=== PATIENT | female | born 1995 | race Caucasian/White ===

== ENCOUNTER 2018-05-23 10:08 | Outpatient (CLI) | payer MEDICAID, SELFPAY ==
[2018-05-23 10:40] LABS: Abs Immature Grans 0.02 k/cumm (0.0-0.09); Absolute Basophil Count 0.04 k/cumm (0.0-0.2); Absolute Eosinophil Count 0.08 k/cumm (0.0-0.7); Absolute Lymphocyte Count 1.58 k/cumm (1.2-3.4); Absolute Monocyte Count 0.42 k/cumm (0.11-0.7); Absolute Neutrophil Count 5.96 k/cumm (1.2-6.7); Basophils % 0.5; HCT 37.2 % (36.0-46.0); HGB 12.4 g/dL (12.0-15.5); Immature Grans % 0.2; Lymphocytes % 19.5; Mean Corp. HGB Concentration 33.3 g/dL (32.0-36.0); Mean Corpuscular Volume 80.9 fL (80-95); Mean Platelet Volume 9.2 fL (8.0-11.0); Monocytes % 5.2; Neutrophils % 73.6; Platelet Count 360 x1000/uL (130-400); RBC Distribution Width 13.4 % (11.7-14.6)
[2018-05-23 10:43] LABS: Glucose,1 Hr (Glucola) 87 mg/dL (80-140)
[2018-05-23 11:48] LABS: TSH (W/Ref FT4) 4.94 uIU/mL (0.358-3.74)
[2018-05-23 12:05] LABS: FREE T4 1.02 ng/dL (0.76-1.46)
[2018-05-23 13:21] LABS: *AMPHETAMINES SCREEN URINE Negative (Negative); *BARBITURATES SCREEN URINE Negative (Negative); *BENZODIAZEPINES SCREEN URINE Negative (Negative); Cannabinoids THC Negative (Negative); Cocaine Screen,Urine Negative (Negative); METHADONE URINE SCREEN Negative (Negative); OPIATES URINE SCREEN Negative (Negative)
[2018-05-23 13:22] LABS: Tricyclic Antidepressants Negative (Negative)
[2018-05-24 08:58] LABS: Hepatitis B Surface Ag Negative (NEGAT)
[2018-05-24 09:46] LABS: Hepatitis C Ab w Rflx HCV PCR Negative (NEGAT)
[2018-05-24 09:50] LABS: HIV-1/2 Ag & Ab Screen Negative (NEGAT)
[2018-05-24 13:03] LABS: Chlamydia Result Negative; GC Result Negative; Specimen Description CERVIX
[2018-05-24 13:04] LABS: Rubella IgG Ab (UVM) Positive; Syphilis Serology (RPR) Negative (Negative); Varicella IgG Antibody Negative
[2018-05-27 15:00] LABS: Buprenorphine Negative; Norbuprenorphine Negative
== END 2018-05-23 10:28 ==
PROVIDERS: Visit Provider Advanced Practice Midwife
DX: Z34.91 Encounter for supervision of normal pregnancy, unspecified, first trimester (principal); Z11.3 Encounter for screening for infections with a predominantly sexual mode of transmission; Z11.4 Encounter for screening for human immunodeficiency virus [HIV]; Z01.84 Encounter for antibody response examination; Z11.59 Encounter for screening for other viral diseases
CPT/HCPCS: 36415; 80055; 80307; 82950; 86787; 86803; 86850; 86900; 86901; 87340; 87389; 87491; 87591; 84439; 84443; 86592; 86762; 87086

== ENCOUNTER 2018-05-23 12:53 | Outpatient (REF) | payer MEDICAID, SELFPAY ==
--- NOTE | 2018-05-23 09:55 | PAPFT_PTH ---
PATIENT: Ramonita Peacock LOC: [facility] U#:[id number] AGE/SX: 22/F ROOM: RE05/23/[address]: Ford Benavidez RN : 1995 BED: DIS: 05/23/2018 SPEC #: [id number] RECD: 05/23/18 13:09 STATUS: TOMMY REThomas #: [id number] DELON: 05/23/18 09:[address]: Ford Benavidez DEPT: [facility] Cytology RECD BY: Stefani Casillas ENTERED: 05/23/18 13:09 SP TYPE: PAPFT OTHR DR: Sara Tissues: 1 - CX/ENDOCX FOR PAP SMEARS Procedures: PAP THIN PREP/[facility] Screening Comments: [id number]
== END 2018-05-23 13:13 ==
LOC: LBN 12:53
PROVIDERS: Visit Provider Advanced Practice Midwife
DX: Z12.4 Encounter for screening for malignant neoplasm of cervix (principal)
CPT/HCPCS: 88142

== ENCOUNTER 2018-07-15 17:34 | Outpatient (REF) | payer MEDICAID, SELFPAY | END 2018-07-15 17:54 | LOC: LBN 17:34 | PROVIDERS: Visit Provider Advanced Practice Midwife | DX: R69 Illness, unspecified (principal); R10.2 Pelvic and perineal pain | CPT/HCPCS: 87480; 87510; 87660 ==

== ENCOUNTER 2018-07-26 07:00 | Outpatient (CLI) | payer MEDICAID, SELFPAY ==
[2018-07-26 10:21] LABS: Kit/Specimen SENT
[2018-07-26 11:30] LABS: FREE T4 1.13 ng/dL (0.76-1.46); TSH 2.24 uIU/mL (0.358-3.74)
[2018-07-29 15:26] LABS: AFP 54.2 ng/mL; Cigarette smoking status non-smoker; GA used in risk estimate Dates estimate; IVF Pregnancy No; Initial or repeat testing Initial testing; Insulin dependent diabetes No; Maternal Weight 215 lbs; Number of Fetuses 1; Physician Phone Number 802-748-7300; Prev Pregnancy w/NTD No; RECOMMENDED FOLLOW UP None.; Results Summary Normal risk
[2018-08-05 01:16] LABS: Specimen WB Whole Blood
[2018-08-06 11:16] LABS: Result Summary NEGATIVE; Specimen WB Whole Blood
== END 2018-07-26 07:20 ==
PROVIDERS: Advanced Practice Midwife; Visit Provider Advanced Practice Midwife
DX: Z34.92 Encounter for supervision of normal pregnancy, unspecified, second trimester (principal); E03.9 Hypothyroidism, unspecified; Z36.89 Encounter for other specified antenatal screening
CPT/HCPCS: 36415; 81329; 81220; 82105; 84439; 84443

== ENCOUNTER 2018-08-12 01:12 | Outpatient (CLI) | payer MEDICAID, SELFPAY ==
--- NOTE | 2018-08-12 12:36 | DI.US_ITS ---
SYMPTOM/DIAGNOSIS: 18 WK ANATOMY SURVEY Z34.90 OB ULTRASOUND: The fetus is in cephalic position. The placenta is anterior. The biometric measurements correspond to 19 weeks 5 days and an EDC of 01 Jan 2019 The amniotic fluid appears normal. No abnormalities are identified. IMPRESSION: survey is within normal limits. Predicted Gestational Age: Indication/History: 19 +3 Wks Range: 18 +3 to 20 +3 Prior US done on: Determined by: First US LMP XX History EDC by prior US: 01/04/19 For multiple gestations: Baby PLACENTA: Grade: 0 - I Location: XX Anterior Posterior PRESENTATION: RT LT LOW LYING PREVIA Cephalic XX Trans (Head RT LT ) Varied Breech BIOMETRY: Anatomy Identified: BPD: 45 mm 19 +5 wks 4 chamber Heart XX Heart Rate 147 BPM HC: 171 mm 10 +5 wks LVOT XX Post Fossa XX AC: 145 mm 19 +6 wks RVOT XX Ventricles XX FL: 30 mm 19 +3 wks Stomach XX Nose XX Bladder XX Lips XX Cisterna Magna: 4.0 mm CI: 83 Kidneys XX Palate XX Cerebellum: 1.96 mm 3 vessel cord XX Spine XX EFW: 304 grms 58 % Cord Insertion XX NS= not seen Composite Age (US) 19 +5 wks Many abnormalities cannot be diagnosed. A normal exam does not exclude congenital abnormality. EDC by US 01/01/19 Amniotic Fluid Index: Normal COMMENTS: RUQ: LUQ: RLQ: LLQ: Total: cm Biophysical Profile: Score 0/2 SHEILA (>2cm) Respirations (>30 sec) Body flexion/extension Extremity flexion/extension TOTAL SCORE
== END 2018-08-12 01:32 ==
PROVIDERS: Visit Provider Advanced Practice Midwife
DX: Z34.92 Encounter for supervision of normal pregnancy, unspecified, second trimester (principal)
CPT/HCPCS: 76805

== ENCOUNTER 2018-09-22 19:05 | Outpatient (CLI) | payer MEDICAID, SELFPAY ==
[2018-09-22 19:24] LABS: Bilirubin Negative (Negative); Blood Moderate (Negative); Clarity Sl Cloudy (Clear); Glucose Negative (Negative); Ketones Negative (Negative); Leukocyte Esterase Negative (Negative); Nitrite Negative (Negative); Specific Gravity 1.015 (1.005-1.025); Urobilinogen 0.2 EU/dL (Up TO 0.2)
[2018-09-22 19:36] LABS: Bacteria Many HPF (Negative); Casts Negative LPF (Negative); Epithelial Cells Many HPF (Negative); Mucus Negative (Negative); Other Cells Few Transitional (Negative); RBC >50 (0-2)
[2018-09-22 19:37] LABS: C & S Indicated? No/Sq. Contamination; Crystals Few Calcium Oxalate HPF (Negative)
== END 2018-09-22 19:25 ==
PROVIDERS: Visit Provider Advanced Practice Midwife
DX: O60.02 Preterm labor without delivery, second trimester (principal); Z3A.25 25 weeks gestation of pregnancy
CPT/HCPCS: 59025; 81003; 81015; 87086

== ENCOUNTER 2018-10-15 09:14 | Outpatient (CLI) | payer MEDICAID, SELFPAY ==
[2018-10-15 10:00] LABS: HCT 30.9 % (36.0-46.0); HGB 10.1 g/dL (12.0-15.5); Mean Corp. HGB Concentration 32.7 g/dL (32.0-36.0); Mean Corpuscular Hemoglobin 27.7 pg (27.0-33.0); Mean Corpuscular Volume 84.7 fL (80-95); Mean Platelet Volume 9.2 fL (8.0-11.0); Platelet Count 333 x1000/uL (130-400); RBC 3.65 m/cumm (4.00-5.20); RBC Distribution Width 13.3 % (11.7-14.6); White Blood Cell Count 11.63 k/cumm (4.4-10.8)
[2018-10-15 10:10] LABS: Glucose,1 Hr (Glucola) 106 mg/dL (80-140)
[2018-10-15 11:08] LABS: TSH (W/Ref FT4) 2.58 uIU/mL (0.36-3.74)
== END 2018-10-15 09:34 ==
PROVIDERS: PCP Internal Medicine; Visit Provider Advanced Practice Midwife
DX: Z34.93 Encounter for supervision of normal pregnancy, unspecified, third trimester (principal)
CPT/HCPCS: 36415; 82950; 85027; 84443

== ENCOUNTER 2018-10-31 14:57 | Outpatient (CLI) | payer MEDICAID, SELFPAY ==
[2018-10-31 15:20] LABS: HCT 30.9 % (36.0-46.0); Mean Corp. HGB Concentration 32.4 g/dL (32.0-36.0); Mean Corpuscular Hemoglobin 27.4 pg (27.0-33.0); Mean Corpuscular Volume 84.7 fL (80-95); Mean Platelet Volume 9.2 fL (8.0-11.0); Platelet Count 321 x1000/uL (130-400); RBC 3.65 m/cumm (4.00-5.20); RBC Distribution Width 13.7 % (11.7-14.6); White Blood Cell Count 11.33 k/cumm (4.4-10.8)
[2018-10-31 16:22] LABS: ALT 18 U/L (14-59); AST 10 U/L (15-37); Albumin 2.8 g/dL (3.4-5.0); Alkaline Phosphatase 81 U/L (46-116); BUN 6 mg/dL (7-18); Bilirubin, Total 0.2 mg/dL (0.2-1.0); CREATININE 0.55 mg/dL (0.55-1.02); Calcium 8.6 mg/dL (8.5-10.1); Chloride 106 mmol/L (98-107); Glucose 97 mg/dL (70-100); Potassium 3.9 mmol/L (3.5-5.1); Sodium 140 mmol/L (136-145); Total Protein 6.1 g/dL (6.4-8.2); Uric Acid 3.6 mg/dL (2.6-6.0)
== END 2018-10-31 15:17 ==
PROVIDERS: PCP Internal Medicine; Visit Provider Advanced Practice Midwife
DX: Z34.90 Encounter for supervision of normal pregnancy, unspecified, unspecified trimester (principal); Z11.3 Encounter for screening for infections with a predominantly sexual mode of transmission
CPT/HCPCS: 36415; 80053; 85027; 82565; 84156; 84550; 87480; 87510; 87660

== ENCOUNTER 2018-11-07 15:23 | Outpatient (CLI) | payer MEDICAID, SELFPAY ==
[2018-11-07 15:47] LABS: HCT 30.9 % (36.0-46.0); HGB 10.1 g/dL (12.0-15.5); Mean Corp. HGB Concentration 32.7 g/dL (32.0-36.0); Mean Corpuscular Hemoglobin 27.5 pg (27.0-33.0); Mean Corpuscular Volume 84.2 fL (80-95); Mean Platelet Volume 9.1 fL (8.0-11.0); Platelet Count 349 x1000/uL (130-400); RBC 3.67 m/cumm (4.00-5.20); RBC Distribution Width 13.8 % (11.7-14.6); White Blood Cell Count 10.67 k/cumm (4.4-10.8)
[2018-11-07 15:56] LABS: PROTEIN 22.5 mg/dL
[2018-11-07 16:03] LABS: COMMENT (LAB VIEW ONLY) 116.71 mg/dL; Prot/Crea Ur Ratio 0.19
[2018-11-07 16:33] LABS: ALT 14 U/L (14-59); AST 10 U/L (15-37); Albumin 2.8 g/dL (3.4-5.0); Alkaline Phosphatase 87 U/L (46-116); Anion Gap 10.4 mmol/L (3-11); BUN 6 mg/dL (7-18); Bilirubin, Total 0.2 mg/dL (0.2-1.0); CO2 23.6 mmol/L (21.0-32.0); CREATININE 0.56 mg/dL (0.55-1.02); Chloride 106 mmol/L (98-107); Glucose 102 mg/dL (70-100); Potassium 3.8 mmol/L (3.5-5.1); Sodium 140 mmol/L (136-145); Uric Acid 3.7 mg/dL (2.6-6.0)
== END 2018-11-07 15:43 ==
PROVIDERS: PCP Internal Medicine; Visit Provider Advanced Practice Midwife
DX: O14.90 Unspecified pre-eclampsia, unspecified trimester (principal); Z34.90 Encounter for supervision of normal pregnancy, unspecified, unspecified trimester
CPT/HCPCS: 36415; 80053; 85027; 82565; 84156; 84550

== ENCOUNTER 2018-11-09 21:05 | Observation (INO) | payer MEDICAID, SELFPAY ==
[2018-11-09 21:48] LABS: PROTEIN 30.6 mg/dL
[2018-11-09 22:00] LABS: COMMENT (LAB VIEW ONLY) 182.61 mg/dL; Prot/Crea Ur Ratio 0.16
[2018-11-09] MEDS: Betamet Acet/Betamet Na Ph Inj. 30 MG/5 ML 12 MG IM (22:23)
[2018-11-09 22:37] LABS: HCT 29.9 % (36.0-46.0); HGB 9.8 g/dL (12.0-15.5); Mean Corp. HGB Concentration 32.8 g/dL (32.0-36.0); Mean Corpuscular Hemoglobin 27.9 pg (27.0-33.0); Mean Corpuscular Volume 85.2 fL (80-95); Mean Platelet Volume 9.5 fL (8.0-11.0); Platelet Count 308 x1000/uL (130-400); RBC 3.51 m/cumm (4.00-5.20); RBC Distribution Width 13.9 % (11.7-14.6); White Blood Cell Count 12.16 k/cumm (4.4-10.8)
[2018-11-09 22:50] LABS: Uric Acid 3.7 mg/dL (2.6-6.0)
[2018-11-09 22:52] LABS: ALT 15 U/L (14-59); AST 10 U/L (15-37); Albumin 2.7 g/dL (3.4-5.0); Alkaline Phosphatase 85 U/L (46-116); Anion Gap 9.7 mmol/L (3-11); BUN 7 mg/dL (7-18); Bilirubin, Total 0.3 mg/dL (0.2-1.0); CO2 25.3 mmol/L (21.0-32.0); CREATININE 0.55 mg/dL (0.55-1.02); Calcium 8.7 mg/dL (8.5-10.1); Chloride 105 mmol/L (98-107); Glucose 79 mg/dL (70-100); Potassium 3.4 mmol/L (3.5-5.1); Sodium 140 mmol/L (136-145); Total Protein 6.4 g/dL (6.4-8.2)
[2018-11-09] MEDS: Aspirin E.C. 81 MG TABEC PO (23:24)
[2018-11-10] MEDS: Budesonide/Formoterol 160/4.5 6 GM 60 PUFF INH IH ×2 (00:02→07:51)
[2018-11-10] MEDS: Sertraline 50 MG TAB PO (07:49)
[2018-11-10] MEDS: Cetirizine 10 MG TAB PO (07:49)
[2018-11-10] MEDS: Prenatal Multivitamin w/CA,FE TAB 1 TAB PO (07:49)
[2018-11-10] MEDS: Ferrous Sulfate 325 MG TAB PO (07:49)
[2018-11-10] MEDS: Levothyroxine 50 MCG TAB PO (07:50)
[2018-11-10] MEDS: Betamet Acet/Betamet Na Ph Inj. 30 MG/5 ML 12 MG IM (22:20)
[2018-11-11 09:30] LABS: Creatinine,Urine 80.03 mg/dL
[2018-11-11 09:32] LABS: PROTEIN 18.2 mg/dL (0.0-11.9)
[2018-11-11 09:34] LABS: Creatinine,24hr Ur 1.52 g/24hr (0.60-1.80); TOTAL PROTEIN,URINE TIMED 350.4 mg/24hr (0.0-149.1); Total Volume 1925 ml
== END 2018-11-10 22:26 | disposition home or self-care (01) ==
PROVIDERS: Admitting Provider Advanced Practice Midwife; PCP Internal Medicine; Visit Provider Advanced Practice Midwife
DX: O26.893 Other specified pregnancy related conditions, third trimester (principal); Z3A.32 32 weeks gestation of pregnancy; O99.013 Anemia complicating pregnancy, third trimester; O99.283 Endocrine, nutritional and metabolic diseases complicating pregnancy, third trimester; O99.343 Other mental disorders complicating pregnancy, third trimester; O99.213 Obesity complicating pregnancy, third trimester; E03.9 Hypothyroidism, unspecified; D64.9 Anemia, unspecified; E66.9 Obesity, unspecified
CPT/HCPCS: 80053; 85027; 96372; 59025; 81050; 82565; 82570; 84155; 84156; 84550; G0378; J0702

== ENCOUNTER 2018-11-14 01:06 | Outpatient (CLI) | payer MEDICAID, SELFPAY ==
--- NOTE | 2018-11-14 08:31 | DI.US_ITS ---
EXAM: US OB BIOPHYSICAL PROFILE CLINICAL HISTORY: gestational HTN, O13.9. TECHNIQUE: Ultrasound performed using standard protocol. COMPARISON: US OB 2-3 trimester from 08/12/2018 FINDINGS: The limited examination reveals a normal biophysical profile. The amniotic fluid index is normal. Th e placenta is anterior. The fetus is in a cephalic position.
== END 2018-11-14 01:26 ==
PROVIDERS: PCP Internal Medicine; Visit Provider Advanced Practice Midwife
DX: O13.9 Gestational [pregnancy-induced] hypertension without significant proteinuria, unspecified trimester (principal); Z36.89 Encounter for other specified antenatal screening
CPT/HCPCS: 76815; 76819

== ENCOUNTER 2018-11-14 10:18 | Outpatient (CLI) | payer MEDICAID, SELFPAY | END 2018-11-14 10:38 | PROVIDERS: PCP Internal Medicine; Visit Provider Advanced Practice Midwife | DX: O13.3 Gestational [pregnancy-induced] hypertension without significant proteinuria, third trimester (principal); Z3A.32 32 weeks gestation of pregnancy | CPT/HCPCS: 59025 ==

== ENCOUNTER 2018-11-15 11:54 | Outpatient (CLI) | payer MEDICAID, SELFPAY | END 2018-11-15 12:14 | PROVIDERS: PCP Internal Medicine; Visit Provider Advanced Practice Midwife | DX: O13.3 Gestational [pregnancy-induced] hypertension without significant proteinuria, third trimester (principal); Z3A.33 33 weeks gestation of pregnancy | CPT/HCPCS: 59025 ==

== ENCOUNTER 2018-11-18 00:35 | Outpatient (CLI) | payer MEDICAID, SELFPAY ==
--- NOTE | 2018-11-18 08:32 | DI.US_ITS ---
EXAM: US OB SHEILA WEIGHT CLINICAL HISTORY: Size greater than dates Z34.90 SUPERVISION NORMAL . TECHNIQUE: Ultrasound performed using standard protocol. COMPARISON: US OB BIOPHYSICAL PROFILE from 11/14/2018 FINDINGS: Please see the ultrasound worksheet for the complete results of this examination.
[2018-11-18 09:23] LABS: HCT 29.8 % (36.0-46.0); HGB 9.8 g/dL (12.0-15.5); Mean Corp. HGB Concentration 32.9 g/dL (32.0-36.0); Mean Corpuscular Hemoglobin 27.8 pg (27.0-33.0); Mean Corpuscular Volume 84.4 fL (80-95); Mean Platelet Volume 8.6 fL (8.0-11.0); Platelet Count 338 x1000/uL (130-400); RBC 3.53 m/cumm (4.00-5.20); RBC Distribution Width 14.2 % (11.7-14.6)
[2018-11-18 10:32] LABS: ALT 12 U/L (14-59); AST 9 U/L (15-37); Albumin 2.7 g/dL (3.4-5.0); Alkaline Phosphatase 94 U/L (46-116); Anion Gap 12.5 mmol/L (3-11); BUN 7 mg/dL (7-18); Bilirubin, Total 0.4 mg/dL (0.2-1.0); CO2 21.5 mmol/L (21.0-32.0); CREATININE 0.56 mg/dL (0.55-1.02); Calcium 8.9 mg/dL (8.5-10.1); Chloride 106 mmol/L (98-107); Glucose 83 mg/dL (70-100); Potassium 3.6 mmol/L (3.5-5.1); Sodium 140 mmol/L (136-145); Uric Acid 3.9 mg/dL (2.6-6.0)
== END 2018-11-18 00:55 ==
PROVIDERS: PCP Internal Medicine; Visit Provider Advanced Practice Midwife
DX: O26.843 Uterine size-date discrepancy, third trimester (principal); O13.3 Gestational [pregnancy-induced] hypertension without significant proteinuria, third trimester; Z3A.33 33 weeks gestation of pregnancy
CPT/HCPCS: 36415; 76816; 80053; 85027; 81050; 84155; 84550

== ENCOUNTER 2018-11-18 07:47 | Outpatient (CLI) | payer MEDICAID, SELFPAY | END 2018-11-18 08:07 | PROVIDERS: PCP Internal Medicine; Visit Provider Advanced Practice Midwife | DX: O13.3 Gestational [pregnancy-induced] hypertension without significant proteinuria, third trimester (principal); R51 Headache; Z3A.33 33 weeks gestation of pregnancy | CPT/HCPCS: 59025 ==

== ENCOUNTER 2018-11-21 13:56 | Outpatient (CLI) | payer MEDICAID, SELFPAY | END 2018-11-21 14:16 | PROVIDERS: PCP Internal Medicine; Visit Provider Advanced Practice Midwife | DX: O13.3 Gestational [pregnancy-induced] hypertension without significant proteinuria, third trimester (principal); Z3A.33 33 weeks gestation of pregnancy | CPT/HCPCS: 59025 ==

== ENCOUNTER 2018-11-25 08:37 | Outpatient (CLI) | payer MEDICAID, SELFPAY | END 2018-11-25 08:57 | PROVIDERS: PCP Internal Medicine; Visit Provider Advanced Practice Midwife | DX: O13.3 Gestational [pregnancy-induced] hypertension without significant proteinuria, third trimester (principal); Z3A.34 34 weeks gestation of pregnancy | CPT/HCPCS: 59025 ==

== ENCOUNTER 2018-11-25 13:30 | Outpatient (CLI) | payer MEDICAID, SELFPAY ==
[2018-11-25 14:37] LABS: HGB 9.9 g/dL (12.0-15.5); Mean Corpuscular Hemoglobin 27.7 pg (27.0-33.0); Mean Platelet Volume 9.1 fL (8.0-11.0); Platelet Count 327 x1000/uL (130-400); RBC 3.57 m/cumm (4.00-5.20); RBC Distribution Width 14.1 % (11.7-14.6); White Blood Cell Count 9.71 k/cumm (4.4-10.8)
[2018-11-25 15:06] LABS: COMMENT (LAB VIEW ONLY) 118.79 mg/dL; PROTEIN 20.6 mg/dL; Prot/Crea Ur Ratio 0.17
[2018-11-25 15:21] LABS: ALT 12 U/L (14-59); AST 8 U/L (15-37); Albumin 2.6 g/dL (3.4-5.0); Alkaline Phosphatase 103 U/L (46-116); Anion Gap 10.4 mmol/L (3-11); BUN 6 mg/dL (7-18); Bilirubin, Total 0.3 mg/dL (0.2-1.0); CO2 23.6 mmol/L (21.0-32.0); CREATININE 0.55 mg/dL (0.55-1.02); Calcium 8.9 mg/dL (8.5-10.1); Chloride 106 mmol/L (98-107); FREE T4 0.94 ng/dL (0.76-1.46); Glucose 120 mg/dL (70-100); Potassium 3.6 mmol/L (3.5-5.1); Sodium 140 mmol/L (136-145); TSH 1.69 uIU/mL (0.36-3.74); Total Protein 5.9 g/dL (6.4-8.2); Uric Acid 4.1 mg/dL (2.6-6.0)
== END 2018-11-25 13:50 ==
PROVIDERS: PCP Internal Medicine; Visit Provider Advanced Practice Midwife
DX: O14.93 Unspecified pre-eclampsia, third trimester; O13.3 Gestational [pregnancy-induced] hypertension without significant proteinuria, third trimester
CPT/HCPCS: 36415; 80053; 85027; 82565; 84155; 84156; 84439; 84443; 84550

== ENCOUNTER 2018-11-25 14:51 | Outpatient (REF) | payer MEDICAID, SELFPAY ==
[2018-11-25 17:04] LABS: PROTEIN 24.1 mg/dL (0.0-11.9)
[2018-11-25 17:08] LABS: TOTAL PROTEIN,URINE TIMED 301.3 mg/24hr (0.0-149.1); Total Volume 1250 ml
== END 2018-11-25 15:11 ==
LOC: LBN 14:51
PROVIDERS: PCP Internal Medicine; Visit Provider Advanced Practice Midwife
DX: O13.3 Gestational [pregnancy-induced] hypertension without significant proteinuria, third trimester (principal)
CPT/HCPCS: 81050; 84155

== ENCOUNTER 2018-11-28 11:43 | Outpatient (CLI) | payer MEDICAID, SELFPAY | END 2018-11-28 12:03 | PROVIDERS: PCP Internal Medicine; Visit Provider Advanced Practice Midwife | DX: O13.3 Gestational [pregnancy-induced] hypertension without significant proteinuria, third trimester (principal); Z3A.34 34 weeks gestation of pregnancy | CPT/HCPCS: 59025 ==

== ENCOUNTER 2018-12-02 07:49 | Outpatient (CLI) | payer MEDICAID, SELFPAY | END 2018-12-02 08:09 | PROVIDERS: PCP Internal Medicine; Visit Provider Advanced Practice Midwife | DX: O26.893 Other specified pregnancy related conditions, third trimester (principal); R03.0 Elevated blood-pressure reading, without diagnosis of hypertension; Z3A.35 35 weeks gestation of pregnancy | CPT/HCPCS: 59025 ==

== ENCOUNTER 2018-12-02 12:37 | Outpatient (CLI) | payer MEDICAID, SELFPAY ==
[2018-12-02 13:05] LABS: HCT 31.8 % (36.0-46.0); HGB 10.6 g/dL (12.0-15.5); Mean Corp. HGB Concentration 33.3 g/dL (32.0-36.0); Mean Corpuscular Hemoglobin 27.7 pg (27.0-33.0); Mean Corpuscular Volume 83.2 fL (80-95); Mean Platelet Volume 8.8 fL (8.0-11.0); Platelet Count 314 x1000/uL (130-400); RBC 3.82 m/cumm (4.00-5.20); RBC Distribution Width 14.1 % (11.7-14.6); Reticulocyte 3.2 % (0.5-2.4); White Blood Cell Count 9.48 k/cumm (4.4-10.8)
[2018-12-02 14:25] LABS: ALT 12 U/L (14-59); AST 10 U/L (15-37); Albumin 2.8 g/dL (3.4-5.0); Alkaline Phosphatase 118 U/L (46-116); Anion Gap 11.8 mmol/L (3-11); BUN 7 mg/dL (7-18); Bilirubin, Total 0.3 mg/dL (0.2-1.0); CO2 22.2 mmol/L (21.0-32.0); CREATININE 0.61 mg/dL (0.55-1.02); Calcium 9.2 mg/dL (8.5-10.1); Chloride 104 mmol/L (98-107); Ferritin 36 ng/mL (8-388); Glucose 107 mg/dL (70-100); Potassium 3.7 mmol/L (3.5-5.1); Sodium 138 mmol/L (136-145); Total Protein 6.2 g/dL (6.4-8.2)
[2018-12-02 14:34] LABS: Uric Acid 3.9 mg/dL (2.6-6.0)
[2018-12-02 16:25] LABS: Iron 76 ug/dL (50-175); Total Iron Binding Capacity 519 ug/dL (250-450)
== END 2018-12-02 12:57 ==
PROVIDERS: PCP Internal Medicine; Visit Provider Advanced Practice Midwife
DX: O99.013 Anemia complicating pregnancy, third trimester (principal); O14.93 Unspecified pre-eclampsia, third trimester
CPT/HCPCS: 36415; 80053; 85027; 82728; 83540; 83550; 84550; 85045

== ENCOUNTER 2018-12-02 14:15 | Outpatient (REF) | payer MEDICAID, SELFPAY ==
[2018-12-02 17:58] LABS: Total Volume 2500 ml
== END 2018-12-02 14:35 ==
LOC: LBN 14:15
PROVIDERS: PCP Internal Medicine; Visit Provider Advanced Practice Midwife
DX: O13.3 Gestational [pregnancy-induced] hypertension without significant proteinuria, third trimester (principal)
CPT/HCPCS: 81050; 84155

== ENCOUNTER 2018-12-05 14:19 | Outpatient (CLI) | payer MEDICAID, SELFPAY | END 2018-12-05 14:39 | PROVIDERS: PCP Internal Medicine; Visit Provider Advanced Practice Midwife | DX: O13.3 Gestational [pregnancy-induced] hypertension without significant proteinuria, third trimester (principal); Z3A.35 35 weeks gestation of pregnancy | CPT/HCPCS: 59025 ==

== ENCOUNTER 2018-12-05 15:58 | Outpatient (REF) | payer MEDICAID, SELFPAY ==
[2018-12-05 17:20] LABS: *AMPHETAMINES SCREEN URINE Negative (Negative); *BARBITURATES SCREEN URINE Negative (Negative); *BENZODIAZEPINES SCREEN URINE Negative (Negative); Cannabinoids THC Negative (Negative); Cocaine Screen,Urine Negative (Negative); METHADONE URINE SCREEN Negative (Negative); OPIATES URINE SCREEN Negative (Negative)
[2018-12-05 17:33] LABS: Tricyclic Antidepressants Negative (Negative)
[2018-12-11 12:08] LABS: Buprenorphine Negative; Norbuprenorphine Negative
== END 2018-12-05 16:18 ==
LOC: LBN 15:58
PROVIDERS: PCP Internal Medicine; Visit Provider Advanced Practice Midwife
DX: Z34.93 Encounter for supervision of normal pregnancy, unspecified, third trimester (principal); Z36.85 Encounter for antenatal screening for Streptococcus B
CPT/HCPCS: 80307; 87081

== ENCOUNTER 2018-12-09 09:13 | Outpatient (CLI) | payer MEDICAID, SELFPAY | END 2018-12-09 09:33 | PROVIDERS: PCP Internal Medicine; Visit Provider Advanced Practice Midwife | DX: O13.3 Gestational [pregnancy-induced] hypertension without significant proteinuria, third trimester (principal); Z3A.36 36 weeks gestation of pregnancy | CPT/HCPCS: 59025 ==

== ENCOUNTER 2018-12-09 12:28 | Outpatient (CLI) | payer MEDICAID, SELFPAY ==
[2018-12-09 12:52] LABS: HGB 10.3 g/dL (12.0-15.5); Mean Corp. HGB Concentration 33.2 g/dL (32.0-36.0); Mean Corpuscular Hemoglobin 27.7 pg (27.0-33.0); Mean Corpuscular Volume 83.3 fL (80-95); Mean Platelet Volume 8.9 fL (8.0-11.0); Platelet Count 339 x1000/uL (130-400); RBC 3.72 m/cumm (4.00-5.20); RBC Distribution Width 14.1 % (11.7-14.6)
[2018-12-09 13:52] LABS: ALT 10 U/L (14-59); AST 9 U/L (15-37); Albumin 2.6 g/dL (3.4-5.0); Alkaline Phosphatase 109 U/L (46-116); Anion Gap 13.6 mmol/L (3-11); BUN 6 mg/dL (7-18); Bilirubin, Total 0.3 mg/dL (0.2-1.0); CO2 21.4 mmol/L (21.0-32.0); CREATININE 0.71 mg/dL (0.55-1.02); Calcium 8.8 mg/dL (8.5-10.1); Chloride 105 mmol/L (98-107); Glucose 144 mg/dL (70-100); Potassium 3.6 mmol/L (3.5-5.1); Sodium 140 mmol/L (136-145); Total Protein 5.9 g/dL (6.4-8.2); Uric Acid 4.3 mg/dL (2.6-6.0)
== END 2018-12-09 12:48 ==
PROVIDERS: PCP Internal Medicine; Visit Provider Advanced Practice Midwife
DX: O14.93 Unspecified pre-eclampsia, third trimester (principal)
CPT/HCPCS: 36415; 80053; 85027; 84550

== ENCOUNTER 2018-12-09 16:12 | Outpatient (REF) | payer MEDICAID, SELFPAY ==
[2018-12-09 16:51] LABS: PROTEIN 18.2 mg/dL (0.0-11.9); TOTAL PROTEIN,URINE TIMED 327.6 mg/24hr (0.0-149.1); Total Volume 1800 ml
== END 2018-12-09 16:32 ==
LOC: LBN 16:12
PROVIDERS: PCP Internal Medicine; Visit Provider Advanced Practice Midwife
DX: O13.9 Gestational [pregnancy-induced] hypertension without significant proteinuria, unspecified trimester (principal)
CPT/HCPCS: 81050; 84155

== ENCOUNTER 2018-12-12 00:13 | Outpatient (CLI) | payer MEDICAID, SELFPAY ==
--- NOTE | 2018-12-12 13:33 | DI.US_ITS ---
EXAM: US OB SHEILA AND WEIGHT CLINICAL HISTORY: gestational hypertension Z34.90 SUPERVISION NORMAL TECHNIQUE: Ultrasound performed using standard protocol. COMPARISON: US OB SHEILA AND WEIGHT from 11/18/2018 FINDINGS: The fetus is in cephalic position plate. The placenta is grade 1-2 and anterior. The biometric schuyler surements correspond to 36 weeks 2 days. The amnionic fluid index measures 20.8. cardiac acti vity is demonstrated at 140 beats per minute. The estimated weight is 2817 grams corresponding to the 32nd percentile.
== END 2018-12-12 00:33 ==
PROVIDERS: PCP Internal Medicine; Visit Provider Advanced Practice Midwife
DX: O13.3 Gestational [pregnancy-induced] hypertension without significant proteinuria, third trimester (principal)
CPT/HCPCS: 76816

== ENCOUNTER 2018-12-12 07:36 | Outpatient (CLI) | payer MEDICAID, SELFPAY | END 2018-12-12 07:56 | PROVIDERS: PCP Internal Medicine; Visit Provider Advanced Practice Midwife | DX: O13.3 Gestational [pregnancy-induced] hypertension without significant proteinuria, third trimester (principal); Z3A.36 36 weeks gestation of pregnancy | CPT/HCPCS: 59025 ==

== ENCOUNTER 2018-12-16 12:32 | Outpatient (REF) | payer MEDICAID, SELFPAY ==
[2018-12-16 15:14] LABS: PROTEIN 19.5 mg/dL (0.0-11.9)
[2018-12-16 15:22] LABS: TOTAL PROTEIN,URINE TIMED 386.1 mg/24hr (0.0-149.1); Total Volume 1980 ml
== END 2018-12-16 12:52 ==
LOC: LBN 12:32
PROVIDERS: PCP Internal Medicine; Visit Provider Advanced Practice Midwife
DX: O13.3 Gestational [pregnancy-induced] hypertension without significant proteinuria, third trimester (principal)
CPT/HCPCS: 81050; 84155

== ENCOUNTER 2018-12-16 14:30 | Outpatient (CLI) | payer MEDICAID, SELFPAY | END 2018-12-16 14:50 | PROVIDERS: PCP Internal Medicine; Visit Provider Advanced Practice Midwife | DX: O13.3 Gestational [pregnancy-induced] hypertension without significant proteinuria, third trimester (principal); Z3A.37 37 weeks gestation of pregnancy | CPT/HCPCS: 59025 ==

== ENCOUNTER 2018-12-19 14:03 | Outpatient (CLI) | payer MEDICAID, SELFPAY | END 2018-12-19 14:23 | PROVIDERS: PCP Internal Medicine; Visit Provider Advanced Practice Midwife | DX: O13.3 Gestational [pregnancy-induced] hypertension without significant proteinuria, third trimester (principal); Z3A.37 37 weeks gestation of pregnancy | CPT/HCPCS: 59025 ==

== ENCOUNTER 2018-12-19 16:40 | Outpatient (REF) | payer MEDICAID, SELFPAY ==
[2018-12-19 20:06] LABS: TOTAL PROTEIN,URINE TIMED 418.5 mg/24hr (0.0-149.1); Total Volume 2325 ml
== END 2018-12-19 17:00 ==
LOC: LBN 16:40
PROVIDERS: PCP Internal Medicine; Visit Provider Advanced Practice Midwife
DX: O13.3 Gestational [pregnancy-induced] hypertension without significant proteinuria, third trimester (principal)
CPT/HCPCS: 81050; 84155

== ENCOUNTER 2018-12-23 12:29 | Outpatient (CLI) | payer MEDICAID, SELFPAY ==
[2018-12-23 13:12] LABS: HGB 10.2 g/dL (12.0-15.5); Mean Corp. HGB Concentration 32.9 g/dL (32.0-36.0); Mean Corpuscular Hemoglobin 27.4 pg (27.0-33.0); Mean Corpuscular Volume 83.3 fL (80-95); Platelet Count 324 x1000/uL (130-400); RBC 3.72 m/cumm (4.00-5.20); RBC Distribution Width 14.3 % (11.7-14.6); White Blood Cell Count 10.97 k/cumm (4.4-10.8)
[2018-12-23 14:07] LABS: ALT 13 U/L (14-59); AST 9 U/L (15-37); Albumin 2.5 g/dL (3.4-5.0); Alkaline Phosphatase 123 U/L (46-116); Anion Gap 10.9 mmol/L (3-11); BUN 7 mg/dL (7-18); Bilirubin, Total 0.2 mg/dL (0.2-1.0); CO2 24.1 mmol/L (21.0-32.0); CREATININE 0.68 mg/dL (0.55-1.02); Calcium 9.2 mg/dL (8.5-10.1); Chloride 105 mmol/L (98-107); Glucose 103 mg/dL (70-100); Potassium 3.6 mmol/L (3.5-5.1); Sodium 140 mmol/L (136-145); Total Protein 5.9 g/dL (6.4-8.2); Uric Acid 4.9 mg/dL (2.6-6.0)
== END 2018-12-23 12:49 ==
PROVIDERS: Advanced Practice Midwife; PCP Internal Medicine; Visit Provider Advanced Practice Midwife
DX: O14.93 Unspecified pre-eclampsia, third trimester (principal)
CPT/HCPCS: 36415; 80053; 85027; 84550

== ENCOUNTER 2018-12-23 12:45 | Outpatient (REF) | payer MEDICAID, SELFPAY ==
[2018-12-23 15:37] LABS: TOTAL PROTEIN,URINE TIMED 356.3 mg/24hr (0.0-149.1); Total Volume 1875 ml
== END 2018-12-23 13:05 ==
LOC: LBN 12:45
PROVIDERS: PCP Internal Medicine; Visit Provider Advanced Practice Midwife
DX: O13.9 Gestational [pregnancy-induced] hypertension without significant proteinuria, unspecified trimester (principal)
CPT/HCPCS: 81050; 84155

== ENCOUNTER 2018-12-23 13:00 | Outpatient (RCR) | payer MEDICAID, SELFPAY ==
[2018-12-02] MEDS: IRON SUCROSE COMPLEX 200 MG in Normal Saline 100 ML 110 MG IVPB (13:41)
[2018-12-02] MEDS: Normal Saline Flush 10 ML SYR IVP (13:41)
[2018-12-09] MEDS: Normal Saline Flush 10 ML SYR IVP (13:20)
[2018-12-09] MEDS: IRON SUCROSE COMPLEX 200 MG in Normal Saline 100 ML 110 MG IVPB (13:20)
[2018-12-16 13:09] LABS: HCT 30.1 % (36.0-46.0); Mean Corp. HGB Concentration 33.2 g/dL (32.0-36.0); Mean Corpuscular Hemoglobin 27.8 pg (27.0-33.0); Mean Corpuscular Volume 83.6 fL (80-95); Mean Platelet Volume 9.1 fL (8.0-11.0); Platelet Count 309 x1000/uL (130-400); RBC Distribution Width 14.2 % (11.7-14.6); White Blood Cell Count 9.08 k/cumm (4.4-10.8)
[2018-12-16 13:11] LABS: ALT 13 U/L (14-59); AST 12 U/L (15-37); Albumin 2.4 g/dL (3.4-5.0); Alkaline Phosphatase 119 U/L (46-116); Anion Gap 13.4 mmol/L (3-11); BUN 6 mg/dL (7-18); Bilirubin, Total 0.3 mg/dL (0.2-1.0); CO2 23.6 mmol/L (21.0-32.0); CREATININE 0.58 mg/dL (0.55-1.02); Calcium 9.2 mg/dL (8.5-10.1); Chloride 104 mmol/L (98-107); Glucose 114 mg/dL (70-100); Potassium 3.7 mmol/L (3.5-5.1); Sodium 141 mmol/L (136-145); Total Protein 6.3 g/dL (6.4-8.2); Uric Acid 4.6 mg/dL (2.6-6.0)
[2018-12-16] MEDS: IRON SUCROSE COMPLEX 200 MG in Normal Saline 100 ML 110 MG IVPB (13:22)
[2018-12-16] MEDS: Normal Saline Flush 10 ML SYR IVP (13:22)
[2018-12-23] MEDS: IRON SUCROSE COMPLEX 200 MG in Normal Saline 100 ML 110 MG IVPB (13:30)
[2018-12-23] MEDS: Normal Saline Flush 10 ML SYR IVP (13:33)
== END 2018-12-26 23:59 | disposition home or self-care (01) ==
LOC: INF 13:00
PROVIDERS: PCP Internal Medicine; Visit Provider Advanced Practice Midwife
DX: O99.013 Anemia complicating pregnancy, third trimester (principal)
CPT/HCPCS: 36415; 80053; 85027; 96365; 84550; J1756

== ENCOUNTER 2018-12-23 14:32 | Outpatient (CLI) | payer MEDICAID, SELFPAY | END 2018-12-23 14:52 | PROVIDERS: PCP Internal Medicine; Visit Provider Advanced Practice Midwife | DX: O13.3 Gestational [pregnancy-induced] hypertension without significant proteinuria, third trimester (principal); Z3A.38 38 weeks gestation of pregnancy | CPT/HCPCS: 59025 ==

== ENCOUNTER 2018-12-26 10:07 | Inpatient (IN) | payer MEDICAID, SELFPAY ==
[2018-12-26] MEDS: miSOPROStol 50 MCG TAB PO (17:09)
[2018-12-26 17:36] LABS: HCT 31.7 % (36.0-46.0); HGB 10.6 g/dL (12.0-15.5); Mean Corp. HGB Concentration 33.4 g/dL (32.0-36.0); Mean Corpuscular Hemoglobin 27.8 pg (27.0-33.0); Mean Corpuscular Volume 83.2 fL (80-95); Mean Platelet Volume 9.2 fL (8.0-11.0); Platelet Count 321 x1000/uL (130-400); RBC 3.81 m/cumm (4.00-5.20); RBC Distribution Width 14.7 % (11.7-14.6); White Blood Cell Count 11.47 k/cumm (4.4-10.8)
[2018-12-26 17:46] LABS: ALT 13 U/L (14-59); AST 22 U/L (15-37); Albumin 2.6 g/dL (3.4-5.0); Alkaline Phosphatase 125 U/L (46-116); Bilirubin, Total 0.3 mg/dL (0.2-1.0); Total Protein 6.5 g/dL (6.4-8.2)
[2018-12-26 18:16] LABS: Bilirubin, Direct < 0.05 mg/dL (0.00-0.20)
[2018-12-26] MEDS: Penicillin G POT. 5,000,000 UNITS in Normal Saline 100 ML 200 UNITS IVPB (18:37)
[2018-12-26] MEDS: Lactated Ringers 1,000 ML 200 ML IV (18:39)
[2018-12-26] MEDS: miSOPROStol 25 MCG TAB PO (21:04)
[2018-12-26] MEDS: Zolpidem 5 MG TAB 10 MG PO (21:04)
[2018-12-26] MEDS: Penicillin G POT. 3,000,000 UNITS in Normal Saline 50 ML 100 UNITS IVPB (22:10)
[2018-12-27] MEDS: miSOPROStol 25 MCG TAB PO (01:02)
[2018-12-27] MEDS: Penicillin G POT. 3,000,000 UNITS in Normal Saline 50 ML 100 UNITS IVPB ×2 (02:05→06:11)
[2018-12-27] MEDS: Levothyroxine 50 MCG TAB PO (06:10)
[2018-12-27] MEDS: Lactated Ringers 1,000 ML 125 ML IV (07:06)
[2018-12-27] MEDS: Zolpidem 5 MG TAB 10 MG PO (20:35)
[2018-12-28] MEDS: Levothyroxine 50 MCG TAB PO (08:31)
[2018-12-28] MEDS: Sertraline 50 MG TAB PO (08:32)
[2018-12-28] MEDS: miSOPROStol 25 MCG TAB 50 MCG VG (08:34)
[2018-12-28] MEDS: Penicillin G POT. 3,000,000 UNITS in Normal Saline 50 ML 100 UNITS IVPB ×2 (12:14→16:02)
[2018-12-28] MEDS: Lactated Ringers 500 ML IV (12:14)
[2018-12-28] MEDS: FentaNYL/ROPIvacaine 2 mcg/ml and 0.1% 200 ML CADD Cassette EP (12:29)
[2018-12-28] MEDS: fentaNYL 100 MCG/2 ML VIAL EP (13:14)
[2018-12-28] MEDS: Bupivacaine 0.25% Pres-Free 30 ML VIAL (13:14)
[2018-12-28] MEDS: Normal Saline Flush 10 ML SYR IVP (16:03)
[2018-12-28] MEDS: Ibuprofen 600 MG TAB PO (21:50)
[2018-12-29] MEDS: Ibuprofen 600 MG TAB PO ×3 (03:15→18:19)
[2018-12-29] MEDS: Levothyroxine 50 MCG TAB PO (06:15)
[2018-12-29] MEDS: Sertraline 50 MG TAB PO (08:53)
[2018-12-29] MEDS: Acetaminophen 325 MG TAB 650 MG PO ×2 (08:54→18:19)
[2018-12-30] MEDS: Sertraline 50 MG TAB PO (08:19)
[2018-12-30] MEDS: Levothyroxine 50 MCG TAB PO (08:19)
[2018-12-30] MEDS: Acetaminophen 325 MG TAB 650 MG PO (09:25)
[2018-12-30] MEDS: Ibuprofen 600 MG TAB PO (09:25)
[2018-12-30 11:23] LABS: HCT 28.3 % (36.0-46.0); HGB 9.5 g/dL (12.0-15.5); Mean Corp. HGB Concentration 33.6 g/dL (32.0-36.0); Mean Corpuscular Hemoglobin 28.4 pg (27.0-33.0); Mean Corpuscular Volume 84.5 fL (80-95); Mean Platelet Volume 9.1 fL (8.0-11.0); Platelet Count 323 x1000/uL (130-400); RBC 3.35 m/cumm (4.00-5.20); RBC Distribution Width 14.6 % (11.7-14.6); White Blood Cell Count 11.41 k/cumm (4.4-10.8)
== END 2018-12-30 14:05 | disposition home or self-care (01) | DRG 807 ==
PROVIDERS: Advanced Practice Midwife; Admitting Provider Advanced Practice Midwife; PCP Internal Medicine; Visit Provider Advanced Practice Midwife
DX: O13.4 Gestational [pregnancy-induced] hypertension without significant proteinuria, complicating childbirth (principal); Z37.0 Single live birth; O70.1 Second degree perineal laceration during delivery; O66.0 Obstructed labor due to shoulder dystocia; O69.81X0 Labor and delivery complicated by cord around neck, without compression, not applicable or unspecified; O76 Abnormality in fetal heart rate and rhythm complicating labor and delivery; Z3A.38 38 weeks gestation of pregnancy; O99.284 Endocrine, nutritional and metabolic diseases complicating childbirth; O99.824 Streptococcus B carrier state complicating childbirth; O99.52 Diseases of the respiratory system complicating childbirth; E03.9 Hypothyroidism, unspecified; J45.909 Unspecified asthma, uncomplicated; Z23 Encounter for immunization
CPT/HCPCS: 36415; 80076; 85027; 86850; 86900; 86901; 84550; J2540; J3010; J3490

== ENCOUNTER 2018-12-30 01:36 | Outpatient (RCR) | payer MEDICAID, SELFPAY | END 2019-01-25 23:59 | disposition home or self-care (01) | LOC: INF 01:36 | PROVIDERS: PCP Internal Medicine; Visit Provider Advanced Practice Midwife | DX: R69 Illness, unspecified (principal) ==

== ENCOUNTER 2019-09-30 10:57 | Outpatient (CLI) | payer MEDICAID, SELFPAY ==
--- NOTE | 2019-09-30 12:45 | DI.RAD_ITS ---
EXAM: XR LUMBAR SPINE COMPLETE CLINICAL HISTORY: CHRONIC WORSENING LOW BACK PAIN, NO H/O TRAUMA, M54.5 TECHNIQUE: COMPARISON: No exams were available for comparison FINDINGS: Six views were obtained. The intervertebral disc spaces are well maintained. There is no evidence o f spondylolysis or spondylolisthesis. No bony abnormality seen. The SI joints appear intact. IMPRESSION: Negative examination of the lumbosacral spine
--- NOTE | 2019-09-30 12:50 | DI.RAD_ITS ---
EXAM: XR THORACIC SPINE COMPLETE CLINICAL HISTORY: CHRONIC WORSENING THORACIC BACK PAIN, NO H/O TRAUMA, M54.6 TECHNIQUE: COMPARISON: No exams were available for comparison FINDINGS: Three views were obtained. There is a minimal biconvex thoracolumbar scoliosis. Intervertebral disc spaces appear intact throughout the thoracic region. No bony abnormality seen. IMPRESSION: Negative examination thoracic spine
== END 2019-09-30 11:17 ==
PROVIDERS: PCP Internal Medicine; Visit Provider Physician Assistant Medical
DX: M54.6 Pain in thoracic spine (principal); M54.5 Low back pain
CPT/HCPCS: 72072; 72110

== ENCOUNTER 2021-03-23 00:56 | Outpatient (CLI) | payer MEDICAID, SELFPAY ==
--- NOTE | 2021-03-23 08:00 | DI.US_ITS ---
Exam(s) US PELVIS TRANSVAGINAL EXAM: US PELVIS TRANSVAGINAL CLINICAL HISTORY: AUB, uterine fibroid, D25.1, N93.9 TECHNIQUE: Ultrasound of the pelvis was performed both transabdominal and transvaginal. COMPARISON: US US OB SHEILA WEIGHT from 12/12/2018 FINDINGS: UTERUS: Nongravid and anteverted Measures 6.8 cm length x 2.7 cm AP x 4.7 cm wide. There are no uterine fibroids. Endometrial thickness measures 4.8 mm. There is no fluid in the endometrial canal. CERVIX: There are no obvious nabothian cysts. RIGHT OVARY: Measures 2.8 x 2.7 x 1.8 cm No significant cysts nor masses evident in the right ovary. LEFT OVARY: Measures 2.6 x 1.6 x 2.5 cm Contains a 2.3 x 1.4 x 2.1 cm complex cyst. CUL-DE-SAC: No free fluid evident. IMPRESSION: 1. Normal appearing uterus and age-appropriate endometrium. 2. Right ovary unremarkable. 3. There is a complex cyst in left ovary measuring 2.3 x 1.4 x 2.1 cm, appearing partially hemorrhagi c. Requires imaging follow-up. No free fluid. DATA REPOSITORY:
== END 2021-03-23 01:16 ==
PROVIDERS: PCP Internal Medicine; Visit Provider Nurse Practitioner Women's Health
DX: D25.1 Intramural leiomyoma of uterus (principal); N93.8 Other specified abnormal uterine and vaginal bleeding; N83.292 Other ovarian cyst, left side
CPT/HCPCS: 76830; 76856

== ENCOUNTER 2021-04-25 12:54 | Outpatient (REF) | payer MEDICAID, SELFPAY ==
--- NOTE | 2021-04-25 11:20 | ENDOMET_PTH ---
PATIENT: Ramonita Peacock LOC: [facility] U#:[id number] AGE/SX: 25/F ROOM: RE04/25/[address]: Deisy Tan NP : 1995 BED: DIS: 04/25/2021 SPEC #: [id number] RECD: 04/25/21 13:02 STATUS: TOMMY REThomas #: [id number] DELON: 04/25/21 11:[address]: Dominick HURT,Deisy DEPT: Surgical Specimen RECD BY: Stefani Casillas ENTERED: 04/25/21 13:02 SP TYPE: Endomet OTHR DR: Rosemarie Lerner Tissues: 1 - ENDOMETRIUM BX/SUSY Procedures: GROSS AND MICRO LEVEL 4 Comments: [id number]
== END 2021-04-25 12:55 | disposition home or self-care (01) ==
LOC: LBN 12:54
PROVIDERS: PCP Internal Medicine; Visit Provider Nurse Practitioner Women's Health
DX: N71.1 Chronic inflammatory disease of uterus (principal)
CPT/HCPCS: 88305

== ENCOUNTER → 2021-07-20 03:54 | Outpatient (CLI) | payer MEDICAID, SELFPAY ==
--- NOTE | 2021-07-20 07:45 | DI.US_ITS ---
Exam(s) US PELVIS TRANSVAGINAL EXAM: US PELVIS TRANSVAGINAL CLINICAL HISTORY: Breakthrough bleeding while on Depo, MENORRHAGIA IRREGULAR CYCLE. TECHNIQUE: Transabdominal and transvaginal pelvic ultrasound was performed using standard protocol. COMPARISON: US US PELVIS TRANSVAGINAL from 03/23/2021 FINDINGS: KIDNEYS: Kidneys are symmetric in size. No evidence of renal calculi. No evidence of hydronephrosis. No renal mass or cyst identified. UTERUS: Position: Anteverted. Size: 7.9 long by 4.4 AP by 5.2 transverse cm Endometrium: 0.7 cm. Normal for patient's menstrual status. Myometrium: Unremarkable. Cervix: Unremarkable. OVARIES: Right: 2.5 x 2.4 x 1.5 cm Cyst or mass: No suspicious cystic or solid masses. Left: 2.7 x 1.4 x 2.1 cm Cyst or mass: No suspicious cystic or solid masses. DOPPLER: Color: Symmetric and uniform flow to both ovaries. No hyperemia. CUL-DE-SAC: Free fluid: None. Other: None. IMPRESSION: 1. Normal sonographic appearance of the kidneys. 2. Normal-appearing uterus with endometrial stripe within normal limits. 3. Unremarkable bilateral ovaries. DATA REPOSITORY:
== END ==
PROVIDERS: PCP Internal Medicine; Visit Provider Advanced Practice Midwife
DX: N92.1 Excessive and frequent menstruation with irregular cycle (principal)
CPT/HCPCS: 76830; 76856